=== PATIENT | female | born 1955 | race African-American/Black ===

== ENCOUNTER 2017-12-16 10:00 | Outpatient (CLI) | payer MEDICARE, MEDICAID ==
--- NOTE | 2017-12-16 12:14 | RAD ---
FOUR VIEWS CERVICAL SPINE: 12/16/2017 HISTORY: Cervical arthritis. Patient having neck pain for six weeks. FINDINGS: C1 to the cervicothoracic junction is seen on the lateral view. Vertebral body heights are within no rmal limits. There is minimal anterolisthesis of C7 on T1. No fracture is visualized. Osteophytes are present at the C4-C5, C5-C6, and C6-C7 levels. Prevertebral soft tissues are within normal limit s. IMPRESSION: 1. Slight anterolisthesis of C7 on T1. Exact etiology is uncertain based on this exam and could pos sibly be attributable to degenerative changes, but ligamentous injury cannot be excluded. No fractur e is seen. Flexion/extension views may be helpful for further evaluation versus MRI cervical spine. 2. Degenerative changes in the cervical spine. POS: [facility]
--- NOTE | 2017-12-16 12:20 | RAD ---
SINUSES THREE VIEWS: HISTORY: Sinus pressure and pain. Facial pain. FINDINGS: No air-fluid levels are seen in the paranasal sinuses. POS: [facility]
== END 2017-12-16 10:01 | disposition home or self-care (01) ==
LOC: SCSRAD 10:00
PROVIDERS: ATTEND Psychiatry & Neurology Neurology
DX: M46.92 Unspecified inflammatory spondylopathy, cervical region (principal); M47.892 Other spondylosis, cervical region
CPT/HCPCS: 36415; 70220; 72040; 85652

== ENCOUNTER 2018-02-28 10:41 | Outpatient (CLI) | payer MEDICARE, MEDICAID ==
[2018-02-28 11:23] LABS: Anion Gap 12 mmol/L (10-20); BUN (Urea Nitrogen) 14 mg/dL (9.8-20.1); Calc. Creatinine Clearance 0 mL/min (70-130); Calcium 9.1 mg/dL (7.8-10.44); Carbon Dioxide 29 mmol/L (23-31); Chloride 105 mmol/L (98-107); Estimated GFR-MDRD Greater than 90; Glucose 178 mg/dL (80-115); Potassium 4.1 mmol/L (3.5-5.1); Sodium 142 mmol/L (136-145)
[2018-02-28 11:32] LABS: Bilirubin Negative (Negative); Blood, Urine Trace (Negative); Glucose, Urine (Dipstick) Negative (Negative); Leukocyte Moderate (Negative); Nitrite Negative (Negative); Protein, Urine (Dipstick) Negative (Neg-Trace)
[2018-02-28 11:36] LABS: Clarity Slightly Cloudy (Clear)
[2018-02-28 11:40] LABS: Bacteria/HPF None Seen HPF (None Seen); RBC/HPF 0-3 HPF (0-3); Squamous Epithelial 0-3 HPF (0-3); WBC/HPF 0-3 HPF (0-3)
--- NOTE | 2018-02-28 12:01 | ULT ---
RENAL ULTRASOUND: Date: 02-28-18 Comparison: None. History: Microhematuria. Technique: Multiplanar grayscale sonographic imaging of the kidneys and urinary bladder obtained. FINDINGS: Right kidney measures 11.0 x 5.5 x 5.1 cm and left kidney measures 10.3 x 5.8 x 5.3 cm. Upper pole right renal cyst noted measuring 2.2 x 2.0 x 2.3 cm. No hydronephrosis or stone seen on ei ther side. Urinary bladder appears grossly unremarkable. IMPRESSION: No acute findings. POS: [facility]
== END 2018-02-28 10:42 | disposition home or self-care (01) ==
LOC: SCSULT 10:41
PROVIDERS: ATTEND Urology
DX: R31.29 Other microscopic hematuria (principal); Q61.01 Congenital single renal cyst
CPT/HCPCS: 36415; 76770; 80048; 81001; 87077; 87086; 88112

== ENCOUNTER 2020-05-14 12:52 | Outpatient (CLI) | payer MEDICARE, MEDICAID ==
--- NOTE | 2020-05-14 13:20 | CT ---
CT BRAIN NONCONTRAST: DATE: 05/14/2020 HISTORY: 64-year-old female with headache FINDINGS: There is no evidence of acute intra-axial or extra-axial hemorrhage. There is no midline shift or any other mass effect. There is no extra-axial fluid collection. There is no evidence of obstructive hydrocephalus. Calvarium is intact. There are small regions of low attenuation in the bilateral exter nal capsules and anterior limbs of lateral internal capsules, consistent with chronic ischemic white matter changes or tiny old lacunar infarctions. IMPRESSION: 1. No acute intracranial findings. 2. Chronic ischemic changes of bilateral internal and external capsules.
== END 2020-05-14 12:53 | disposition home or self-care (01) ==
LOC: SCSCT 12:52
PROVIDERS: ATTEND Psychiatry & Neurology Neurology
DX: R51 Headache (principal); I67.82 Cerebral ischemia
CPT/HCPCS: 70450